=== PATIENT | male | born 1935 | race Caucasian/White ===

== ENCOUNTER 2017-04-08 07:54 | Day surgery (SDC) | payer OTHER ==
[2017-04-07 14:06] VITALS: BMI 35.5
[2017-04-08] MEDS ORDERED: PROPOFOL 20 ML ONE ×3 (10:17)
[2017-04-08 10:21] VITALS: TEMP 97.8
[2017-04-08 11:40] VITALS: BP 120/55; PULSE 59
--- NOTE | 2017-04-09 15:09 | PATH ---
Surgical Pathology Report Patient Name: ANGI ACOSTA [facility]. Rec. #: [id number] /Age/Gender: 1935 (Age: 81) / M Account: [id number] Location: U-ENDOSCOPY Taken: 04/08/2017 Received: 04/08/2017 Reported: 04/09/2017 Physicians: Latrell Westbrook M.D. Specimen(s) Received A: BX DUODENUM B: BX ANTRUM C: POLYP RIGHT COLON D: POLYP CECUM E: POLYP DISTAL TRANSVERSE COLON Clinical History Preoperative diagnosis: Anemia Postoperative diagnosis: Sliding hiatal hernia, gastritis, colon polyps, hemorrhoids, diverticulosis Final Diagnosis A. DUODENUM, SECOND PORTION AND BULB, BIOPSY: DUODENAL MUCOSA WITHOUT SIGNIFICANT PATHOLOGIC FINDINGS. B. STOMACH, ANTRUM, BIOPSY: GASTRIC ANTRAL MUCOSA WITH MILD CHRONIC GASTRITIS. IMMUNOHISTOCHEMICAL STAIN FOR H. PYLORI IS NEGATIVE. C. COLON, RIGHT, POLYPS, POLYPECTOMY: TUBULAR ADENOMA(S). D. CECUM, POLYP, POLYPECTOMY: HYPERPLASTIC POLYP. E. CECUM, POLYP, POLYPECTOMY: HYPERPLASTIC POLYP. Electronically Signed Radha Shay M.D. Gross Description A. Received in formalin, labeled "biopsy duodenum second portion and bulb" are 5 jain, irregular portions of soft tissue ranging from 0.1-0.4 cm. in greatest dimension. The specimens are submitted in toto in one cassette. B. Received in formalin, labeled "biopsy antrum" are 3 jain, irregular portions of soft tissue averaging 0.3 cm. in greatest dimension. The specimens are submitted in toto in one cassette. C. Received in formalin, labeled "polyps right colon" are 5 jain, irregular portions of soft tissue ranging from 0.1-0.2 cm. in greatest dimension. The specimens are submitted in toto in one cassette. D. Received in formalin, labeled "polyp cecum" is a jain, irregular portion of soft tissue measuring 0.6 cm. in greatest dimension. The specimen is submitted in toto in one cassette. E. Received in formalin, labeled "polyp distal transverse colon" are 3 jain, irregular portions of soft tissue ranging from 0.2-0.3 cm. in greatest dimension. The specimens are submitted in toto in one cassette. 04/08/201704/08/2017
== END 2017-04-08 11:40 | disposition home or self-care (01) ==
LOC: JASU-ENDO 07:54
PROVIDERS: ATTEND Internal Medicine Gastroenterology
PROC: 0DBH8ZX Excision of Cecum, Via Natural or Artificial Opening Endoscopic, Diagnostic (ICD-10-PCS; 2017-04-08)
PROC: 0DBL8ZX Excision of Transverse Colon, Via Natural or Artificial Opening Endoscopic, Diagnostic (ICD-10-PCS; 2017-04-08)
PROC: 0DB98ZX Excision of Duodenum, Via Natural or Artificial Opening Endoscopic, Diagnostic (ICD-10-PCS; 2017-04-08)
PROC: 0DB68ZX Excision of Stomach, Via Natural or Artificial Opening Endoscopic, Diagnostic (ICD-10-PCS; 2017-04-08)
PROC: 0DBK8ZX Excision of Ascending Colon, Via Natural or Artificial Opening Endoscopic, Diagnostic (ICD-10-PCS; principal; 2017-04-08 09:45)
DX: Z12.11 Encounter for screening for malignant neoplasm of colon (principal); Z80.0 Family history of malignant neoplasm of digestive organs; D64.9 Anemia, unspecified; D12.2 Benign neoplasm of ascending colon; D12.0 Benign neoplasm of cecum; D12.3 Benign neoplasm of transverse colon; K57.30 Diverticulosis of large intestine without perforation or abscess without bleeding; K64.8 Other hemorrhoids; K29.61 Other gastritis with bleeding; K44.9 Diaphragmatic hernia without obstruction or gangrene

== ENCOUNTER 2019-12-14 07:34 | Emergency (ER) | payer OTHER ==
[2019-12-14 07:46] VITALS: BP 134/60; PULSE 77; TEMP 98.4; BMI 35.4
--- OUTSIDE RECORDS SUMMARY | 2019-12-14 07:48 | XMS ---
:1935 Author Organization [facility] Care Team Providers Name Role Phone Darius Ravi Unavailable Unavailable Re-disclosure Warning The records that you are about to access may contain information from federally- assisted alcohol or drug abuse programs. If such information is present, then the following federally mandated warning applies: This information has been disclosed to you from records protected by federal confidentiality rules (42 CFR part 2). The federal rules prohibit you from making any further disclosure of this information unless further disclosure is expressly permitted by the written consent of the person to whom it pertains or as otherwise permitted by 42 CFR part 2. A general authorization for the release of medical or other information is NOT sufficient for this purpose. The Federal rules restrict any use of the information to criminally investigate or prosecute any alcohol or drug abuse patient.The records that you are about to access may contain highly sensitive health information, the redisclosure of which is protected by Article 27-F of the [facility] Public Health law. If you continue you may haveaccess to information: Regarding HIV / AIDS; Provided by facilities licensed or operated by the [facility] Office of Mental Health; or Provided by the [facility] Office for People With Developmental Disabilities. If such information is present, then the following [facility] mandated warning applies: This information has been disclosed to you from confidential records which are protected by state law. State law prohibits you from making any further disclosure of this information without the specific written consent of the person to whom it pertains, or as otherwise permitted by law. Any unauthorized further disclosure in violation of state law may result in a fine or senior living sentence or both. A general authorization for the release of medical or other information is NOT sufficient authorization for further disclosure. Allergies and Adverse Reactions Type Description Substance Reaction Status Data Source(s ) NO KNOWN DRUG ALLERGIES NO KNOWN DRUG [facility]EXTGEN ([facility] - [facility]) Encounters Encounter Providers Location Date Indications Data Source(s ) Outpatient Attender: 11/15/2019 NEXTGEN ( [facility] 11:13:00 AM [facility]) Outpatient Attender: 11/07/2019 NEXTGEN ( [facility] 12:13:00 PM [facility]) Outpatient Attender: 11/04/2019 NEXTGEN ( [facility] 12:45:00 PM [facility]) Outpatient Attender: 07/11/2019 NEXTGEN ( [facility]er[facility]: 10:00:00 AM [facility]) Medications Medication Brand Start Product Dose Route Administrative Pharmacy [facility] Indications Reaction Description Data Name Date Form Instructions Instructions Source(s) 50 mg-1,000 RP NEXTGEN mg 50 ([facility] mg-1,000 mg [facility]) This may be an active medication. No end date is available. Start date above may not reflect actual date the medication was s tarted. Amlodipine 2.5 MG Oral AMLODIPINE BESYLATE RP NEXTGEN ([facility] Tablet 2.5 mg 2.5 mg [facility]) This may be an active medication. No end date is available. Start date above may not reflect actual date the medication was s tarted. Aspirin 81 MG Chewable ASPIRIN RP [facility] 81 mg M t [facility]) This may be an active medication. No end date is available. Start date above may not reflect actual date the medication was s tarted. 3 ML Insulin Lispro 100 HUMALOG RP [facility]GEN ([facility] UNT/ML Cartridge [Humalog] [facility]) 100 unit/mL 100 unit/mL This may be an active medication. No end date is available. Start date above may not reflect actual date the medication was s tarted. Atenolol 25 MG Oral Tablet ATENOLOL RP [facility] 25 [facility] 25 mg [facility]) This may be an active medication. No end date is available. Start date above may not reflect actual date the medication was s tarted. ezetimibe 10 MG Oral Tablet ZETIA RP NEXTGEN ([facility] - [Zetia] 10 mg 10 mg [facility]) This may be an active medication. No end date is available. Start date above may not reflect actual date the medication was s tarted. clopidogrel 75 MG Oral Tablet PLAVIX RP NEXTGEN ([facility] - [Plavix] 75 mg 75 mg [facility]) This may be an active medication. No end date is available. Start date above may not reflect actual date the medication was s tarted. 5 mg 5 mg RP NEXTGEN ([facility] - [facility]) This may be an active medication. No end date is available. Start date above may not reflect actual date the medication was s tarted. 3 ML insulin detemir LEVEMIR FLEXTOUCH RP NEXTGEN ([facility] 100 UNT/ML Pen Injector [facility]Levemir] 100 unit/mL [facility]) (3 mL) 100 unit/mL (3 mL) This may be an active medication. No end date is available. Start date above may not reflect actual date the medication was s tarted. pantoprazole 20 MG PANTOPRAZOLE SODIUM RP NEXTGEN ([facility] Delayed Release [facility] - [place] [facility] Tablet 20 mg 20 mg [facility]) This may be an active medication. No end date is available. Start date above may not reflect actual date the medication was s tarted. Furosemide 20 MG Oral FUROSEMIDE RP NEXTGEN ([facility] Tablet 20 mg 20 mg - [facility]) This may be an active medication. No end date is available. Start date above may not reflect actual date the medication was s tarted. Losartan Potassium 25 LOSARTAN POTASSIUM RP NEXTGEN ([facility] MG Oral Tablet 25 mg Medical - [place] 25 mg [facility]) This may be an active medication. No end date is available. Start date above may not reflect actual date the medication was s tarted. atorvastatin 10 MG Oral LIPITOR RP NEXTGEN ([facility] Tablet [Lipitor] 10 mg 10 mg - [facility]) This may be an active medication. No end date is available. Start date above may not reflect actual date the medication was s tarted. Insurance Providers Payer name Policy type Policy ID Covered Covered alliance party's Policy P bryanna / Coverage alliance party ID relationship to [place] or[place]ation [place] [employer] [id number] SP [id number] 01 HEALTHCARE PPO 1 MEDICARE [id number] SP [id number] A CIGN [facility] [id number] 1 [id number] [facility] [id number] 1 [id number] Part B Par 1 Providers
[2019-12-14] MEDS ORDERED: DIPHTH,PERTUSS(ACELL),TET 0.5 ML DISP.SYRIN IM ONE ×2 (08:11→10:24)
--- NOTE | 2019-12-14 08:26 | PDOC ---
Documentation entered by Crys Stephenson SCRIBE, acting as scribe for Chata Gamboa MD. Chata Gamboa MD: This documentation has been prepared by the Seema rapp Xhesika, SCRIBE, under my direction and personally reviewed by me in its entirety. I confirm that the documentation accurately reflects all work, treatment, procedures, and medical decision making performed by me. History of Present Illness - General Chief Complaint: Injury Stated Complaint: FALL, Hit head Time Seen by Provider: 12/14/19 07:57 History Source: Patient Exam Limitations: No Limitations - History of Present Illness Initial Comments: 12/14/19 08:09 The patient is a 84 year old male with a significant PMH of Anemia, HTN, DM, SAD s/p 3 stents, colon polyps, BPH who presents to the emergency department for L hand pain and edema. Pt states he tripped and fell Thursday (12/13/19), hitting his head. Pt does not recall exactly how he landed on his hand (whether it was outstretched or hit the dorsum of his hand) but reports he tripped and fell. Pt states over the past 2 days his L hand has progressively worsened, prompting his arrival to the ED. Pt denies and UE numbness or weakness. Pt is unsure when his last tetanus was. Pt denies vision changes, headache and dizziness. The patient denies chest pain, shortness of breath Denies fever, chills, cough, nausea, vomiting, diarrhea and constipation. Allergies: NKDA PCP:Dr. Reis Past History - Medical History Allergies/Adverse Reactions: Allergies Allergy/AdvReac Type Severity Reaction Status Date / Time No Known Allergies Allergy Verified 12/14/19 07:43 Home Medications: Ambulatory Orders Amlodipine Besylate 5 mg PO DAILY 03/08/18 Aspirin 1 tab PO DAILY 03/08/18 Atenolol [Tenormin] 50 mg PO DAILY 03/08/18 Atorvastatin Ca [Lipitor] 80 mg PO HS 03/08/18 Clopidogrel Bisulfate [Clopidogrel] 1 tab PO DAILY 03/08/18 Ezetimibe [Zetia] 10 mg PO DAILY 03/08/18 Furosemide [Lasix] 20 mg PO DAILY 03/08/18 Glipizide 10 mg PO BID 03/08/18 Losartan 50Mg/Hctz 12.5MG [Hyzaar -] 1 tab PO DAILY 03/08/18 Pantoprazole Sodium [Protonix -] 1 tab PO DAILY 03/08/18 Sitagliptin Phos/Metformin HCl [Janumet 50-1,000 mg Tablet] 1 tab PO BID 03/08/18 Anemia: Yes Asthma: No Cancer: No Cardiac Disorders: Yes (CAD 3 STENTS 2010) CVA: No COPD: No CHF: No Dementia: No Diabetes: Yes (IDDM) GI Disorders: Yes (COLON POLYPS) Disorders: Yes (BPH) HTN: Yes Hypercholesterolemia: Yes Liver Disease: No Seizures: No Thyroid Disease: No - Surgical History Abdominal Surgery: No Appendectomy: No Cardiac Surgery: Yes (S/P CARDIAC STENTS) Cholecystectomy: No Lung Surgery: No Neurologic Surgery: No Orthopedic Surgery: Yes (RIGHT KNEE REPLACEMENT) - Immunization History Immunization Up to Date: Yes - Psycho-Social/Smoking History Smoking Status: No Smoking History: Never smoked Have you smoked in the past 12 months: No Number of Cigarettes Smoked Daily: 0 Information on smoking cessation initiated: No - Substance Abuse Hx (Audit-C & DAST Scrn) How often the patient has a drink containing alcohol: Never Score: In Men: 4 or > Positive; In Women: 3 or > Positive: 0 Screen Result (Pos requires Nsg. Audit-10AR): Negative Review of Systems - Review of Systems Able to Perform ROS?: Yes Comments:: 12/14/19 08:12 GENERAL/CONSTITUTIONAL: No fever or chills. No weakness. HEAD, EYES, EARS, NOSE AND THROAT: No change in vision. No ear pain or discharge. No sore throat. CARDIOVASCULAR: No chest pain or shortness of breath. RESPIRATORY: No cough, wheezing, or hemoptysis. GASTROINTESTINAL: No nausea, vomiting, diarrhea or constipation. GENITOURINARY: No dysuria, frequency, or change in urination. MUSCULOSKELETAL: +L hand pain and edema. No neck or back pain. SKIN: No rash NEUROLOGIC: No headache, vertigo, loss of consciousness, or change in strength/sensation. ENDOCRINE: No increased thirst. No abnormal weight change. HEMATOLOGIC/LYMPHATIC: No anemia, easy bleeding, or history of blood clots. ALLERGIC/IMMUNOLOGIC: No hives or skin allergy. *Physical Exam - Vital Signs Last Vital Signs Temp Pulse Resp BP Pulse Ox 98.4 F 77 19 134/60 96 12/14/19 07:41 12/14/19 07:41 12/14/19 07:41 12/14/19 07:41 12/14/19 07:41 - Physical Exam 12/14/19 08:20 GENERAL: Well appearing, in no acute distress HEENT: echymosis below L eye, no facial tenderness, visual acuity grossly intact, conjunctiva not injected, MMM, EOMI, no racoon eyes, no sagastume sign NECK: Normal ROM, supple, no midline or paraspinal tenderness LUNGS: CTAB. Good air entry. No wheezes, No Rhonchi and no crackles HEART: RRR, + s1 s2 ABDOMEN: Soft, nontender, normoactive bowel sounds. No guarding, no rebound. No masses BACK: no midline or paraspinal tenderness. No CVA tenderness. EXTREMITIES: Warm and well perfused. L hand and wrist edematous with bruising to palmar aspect of L hand on radial side, +ttp on dorsum of hand near mcp joint and distal radius with abrasion to L hand, ROM L wrist limited in flexion/extension, unable to make fist with L hand, flexion of digits on L limited 2/2 swelling, abduction/adduction of digits intact, no snuffbox tenderness, +radial pulses, sensation intact to light touch NEUROLOGICAL: Aox3, responds appropriately to questions, Speech fluent, face symmetric. Sensation grossly intact to light touch. Strength intact. No focal deficits. Medical Decision Making - Medical Decision Making 12/14/19 08:24 84 yo M with mechanical fall, low suspicion for ICH however given age will get CT head and c-spine. L hand swollen with ttp concerning for fx vs. sprain. Plan: -tetanus -CT head -CT c-spine -xr L hand/wrist -pain control as needed, patient declined pain medication at this time -reassess This clinical encounter is taking place during a federal and state health care emergency attributable to the novel [place] Virus pandemic. The [employer] of the Department of Health and Human Services has declared, pursuant to the Public Health Service Act 319F-3 (42 U.S.C. 247d-6d), that a covered persons activities related to medical countermeasures against COVID-19 will be immune from liability under Federal and State law. 12/14/19 10:10 Imaging results reviewed. No evidence of fx or acute intracranial injury. Will apply jonathan wrap and recommend elevatioin. Will d/c with return precautions, recommend PMD f/u. Discharge - Discharge Information Problems reviewed: Yes Clinical Impression/Diagnosis: Fall Qualifiers: Encounter type: initial encounter Qualified Code(s): W19.XXXA - Unspecified fall, initial encounter Condition: Stable Disposition: HOME - Admission No - Follow up/Referral Referrals: Mao Reis MD [Primary Care Provider] - - Patient Discharge Instructions Patient Printed Discharge Instructions: How to Prevent Falls Additional Instructions: Your xray did not show any fractures. You should keep the hand elevated to reduce swelling. return to the ED for new or worsening symptoms. You should follow up with your PMD. - Post Discharge Activity
== END 2019-12-14 10:25 | disposition home or self-care (01) ==
LOC: JER 07:34
PROC: 3E0234Z Introduction of Serum, Toxoid and Vaccine into Muscle, Percutaneous Approach (ICD-10-PCS; principal; 2019-12-14)
DX: M79.642 Pain in left hand (principal)
CPT/HCPCS: 70450-TC; 72125-TC; 73110-TC-LT-FY; 73130-TC-LT-FY; 90715; 99285-25

== ENCOUNTER 2020-05-07 09:34 | Inpatient (IN) | payer OTHER ==
[2020-05-07 09:54] VITALS: BMI 29.8
[2020-05-07] MEDS ORDERED: ACETAMINOPHEN 1000 MG/100 ML VIAL (NON FORMULARY) IVPB ONE (10:46)
[2020-05-07] MEDS ORDERED: ACETAMINOPHEN INJECTION 100 ML IVPB ONE (11:25)
[2020-05-07 12:22] LABS: BASO % 0.3 % (0-2.0); EOS % 0.1 % (0-4.5); HEMATOCRIT 39.3 % (35.4-49); HEMOGLOBIN 13.2 GM/dL (11.7-16.9); LYMPH % 6.4 % (8-40); MCH 32.9 pg (25.7-33.7); MCHC 33.6 g/dl (32.0-35.9); MEAN CELL VOLUME 97.9 fl (80-96); MEAN PLT VOLUME 8.8 fl (7.5-11.1); NEUT % 86.2 % (42.8-82.8); PLATELET COUNT 260 K/MM3 (134-434); RBC 4.02 M/mm3 (4.00-5.60); RDW 14.2 % (11.9-15.9); WHITE BLOOD COUNT 16.6 K/mm3 (4.0-10.0)
[2020-05-07 12:28] LABS: INR 1.13 (0.83-1.09); PROTHROMBIN TIME (PATIENT) 13.9 SEC (9.7-13.0)
[2020-05-07 12:39] LABS: ALBUMIN 3.2 g/dl (3.4-5.0); BLOOD UREA NITROGEN 51.6 mg/dL (7-18); CALCIUM 8.8 mg/dL (8.5-10.1); MAGNESIUM 1.8 mg/dL (1.8-2.4)
[2020-05-07 12:42] LABS: CREATININE 2.2 mg/dL (0.55-1.3)
[2020-05-07 12:44] LABS: BILIRUBIN,TOTAL 1.2 mg/dL (0.2-1); TOT PROT 7.6 g/dl (6.4-8.2)
[2020-05-07 12:56] LABS: POTASSIUM 6.7 mmol/L (3.5-5.1)
[2020-05-07] MEDS ORDERED: SODIUM CHLORIDE 1,000 ML IV STA (13:12)
[2020-05-07] MEDS ORDERED: SODIUM CHLORIDE 1,000 ML IV SCH (14:00)
[2020-05-07 14:13] LABS: POTASSIUM 4.8 mmol/L (3.5-5.1)
[2020-05-07 14:15] LABS: BLOOD UREA NITROGEN 53.1 mg/dL (7-18); CALCIUM 8.6 mg/dL (8.5-10.1)
[2020-05-07 14:19] LABS: CREATININE 2.1 mg/dL (0.55-1.3)
[2020-05-07] MEDS: LACTATED RINGERS SOLUTION 1,000 ML/1,000 ML INFUS.BAG IV SCH (15:28)
[2020-05-07] MEDS ORDERED: ASPIRIN 81 MG CHEWABLE TABLETS ONE (15:29)
[2020-05-07] MEDS: ASPIRIN 81 MG CHEWABLE TABLETS PO SCH (15:30)
[2020-05-07 17:25] LABS: EPI CELLS 32 /uL (0-25.1); HYALINE CASTS 24 /uL (0-3.1); URINE APPEARANCE CLOUDY; URINE BACTERIA 54 /uL (0-1359); URINE BILIRUBIN NEGATIVE (NEGATIVE); URINE COLOR DK YELLOW; URINE GLUCOSE (UA) NEGATIVE (NEGATIVE); URINE KETONE 1+ (NEGATIVE); URINE LEUK ESTERASE TRACE (NEGATIVE); URINE NITRITE NEGATIVE (NEGATIVE); URINE PROTEIN 3+ (NEGATIVE); URINE WBC 82 /uL (0-25.8)
[2020-05-07 18:21] LABS: URINE RBC 137.8 /uL (0-23.9)
[2020-05-08] MEDS: CLOPIDOGREL BISULFATE 75 MG TABLET (FP) PO SCH (11:03)
[2020-05-08] MEDS: ASPIRIN 81 MG CHEWABLE TABLETS PO SCH (11:03)
[2020-05-08 12:42] LABS: BASO % 0.5 % (0-2.0); HEMATOCRIT 36.2 % (35.4-49); HEMOGLOBIN 12.1 GM/dL (11.7-16.9); LYMPH % 14.3 % (8-40); MCH 32.9 pg (25.7-33.7); MCHC 33.4 g/dl (32.0-35.9); MEAN CELL VOLUME 98.7 fl (80-96); MEAN PLT VOLUME 8.3 fl (7.5-11.1); MONO % 8.3 % (3.8-10.2); NEUT % 74.9 % (42.8-82.8); PLATELET COUNT 212 K/MM3 (134-434); RBC 3.67 M/mm3 (4.00-5.60); RDW 14.4 % (11.9-15.9); WHITE BLOOD COUNT 9.7 K/mm3 (4.0-10.0)
[2020-05-08 13:07] LABS: ALBUMIN 2.8 g/dl (3.4-5.0); CALCIUM 8.4 mg/dL (8.5-10.1)
[2020-05-08 13:08] LABS: MAGNESIUM 1.9 mg/dL (1.8-2.4)
[2020-05-08 13:11] LABS: CREATININE 1.5 mg/dL (0.55-1.3)
[2020-05-08 13:12] LABS: TOT PROT 6.4 g/dl (6.4-8.2)
[2020-05-09] MEDS: LACTATED RINGERS SOLUTION 1,000 ML/1,000 ML INFUS.BAG IV SCH (04:59)
[2020-05-09 08:27] LABS: HEMATOCRIT 33.2 % (35.4-49); HEMOGLOBIN 11.3 GM/dL (11.7-16.9); MCH 33.2 pg (25.7-33.7); MEAN CELL VOLUME 97.6 fl (80-96); MEAN PLT VOLUME 8.1 fl (7.5-11.1); PLATELET COUNT 196 K/MM3 (134-434); RDW 14.2 % (11.9-15.9); WHITE BLOOD COUNT 11.2 K/mm3 (4.0-10.0)
[2020-05-09 08:28] LABS: INR 1.14 (0.83-1.09)
[2020-05-09 08:31] LABS: ACTIVATED PTT 24.8 SECONDS (25.2-36.5)
[2020-05-09 08:43] LABS: POTASSIUM 4.5 mmol/L (3.5-5.1)
[2020-05-09 08:44] LABS: BLOOD UREA NITROGEN 35.9 mg/dL (7-18); CALCIUM 8.4 mg/dL (8.5-10.1); MAGNESIUM 1.8 mg/dL (1.8-2.4)
[2020-05-09 08:47] LABS: PHOSPHOROUS 2.7 mg/dL (2.5-4.9)
[2020-05-09 08:48] LABS: CREATININE 1.2 mg/dL (0.55-1.3)
[2020-05-09] MEDS ORDERED: SODIUM CHLORIDE 0.45% 1,000 ML IV SCH (10:00)
[2020-05-09] MEDS: ATENOLOL 50 MG TABLET (FP) PO SCH (10:41)
[2020-05-09] MEDS: LIDOCAINE 5% TOPICAL PATCH TP SCH (10:42)
[2020-05-09] MEDS: ASPIRIN 81 MG CHEWABLE TABLETS PO SCH (10:42)
[2020-05-09] MEDS: amLODIPine BESYLATE 5 MG TABLET (FP) PO SCH (10:42)
[2020-05-09] MEDS: CLOPIDOGREL BISULFATE 75 MG TABLET (FP) PO SCH (10:42)
[2020-05-09] MEDS: SODIUM CHLORIDE 0.45% 1,000 ML IV SCH (14:49)
[2020-05-09] MEDS: LIDOCAINE PATCH REMOVAL MC SCH (23:12)
[2020-05-09] MEDS: ATORVASTATIN CA 80 MG TABLET (FP) PO SCH (23:12)
[2020-05-10] MEDS: amLODIPine BESYLATE 5 MG TABLET (FP) PO SCH (09:34)
[2020-05-10] MEDS: ATENOLOL 50 MG TABLET (FP) PO SCH (09:34)
[2020-05-10] MEDS: CLOPIDOGREL BISULFATE 75 MG TABLET (FP) PO SCH (09:34)
[2020-05-10] MEDS: ASPIRIN 81 MG CHEWABLE TABLETS PO SCH (09:34)
[2020-05-10] MEDS: LIDOCAINE 5% TOPICAL PATCH TP SCH (09:34)
[2020-05-10 09:58] LABS: HEMATOCRIT 34.1 % (35.4-49); HEMOGLOBIN 11.5 GM/dL (11.7-16.9); MCH 33.3 pg (25.7-33.7); MCHC 33.9 g/dl (32.0-35.9); MEAN CELL VOLUME 98.2 fl (80-96); MEAN PLT VOLUME 7.9 fl (7.5-11.1); PLATELET COUNT 192 K/MM3 (134-434); RBC 3.47 M/mm3 (4.00-5.60); RDW 14.2 % (11.9-15.9); WHITE BLOOD COUNT 8.2 K/mm3 (4.0-10.0)
[2020-05-10 10:11] LABS: POTASSIUM 3.9 mmol/L (3.5-5.1)
[2020-05-10 10:12] LABS: CALCIUM 8.1 mg/dL (8.5-10.1)
[2020-05-10 10:13] LABS: BLOOD UREA NITROGEN 26.4 mg/dL (7-18)
[2020-05-10 10:16] LABS: CREATININE 1.2 mg/dL (0.55-1.3)
[2020-05-10] MEDS: SODIUM CHLORIDE 0.45% 1,000 ML IV SCH (13:20)
[2020-05-10] MEDS: INSULIN SLIDING SCALE (NOVOLOG) 1 VIAL SQ SCH ×2 (17:37→22:00)
[2020-05-10] MEDS: ATORVASTATIN CA 80 MG TABLET (FP) PO SCH (21:46)
[2020-05-10] MEDS: LIDOCAINE PATCH REMOVAL MC SCH (21:47)
[2020-05-11] MEDS: LIDOCAINE 5% TOPICAL PATCH TP SCH (10:09)
[2020-05-11] MEDS: ATENOLOL 50 MG TABLET (FP) PO SCH (10:09)
[2020-05-11] MEDS: APIXABAN 5 MG TABLET PO SCH ×2 (10:10→21:39)
[2020-05-11] MEDS: amLODIPine BESYLATE 5 MG TABLET (FP) PO SCH (10:10)
[2020-05-11] MEDS: INSULIN SLIDING SCALE (NOVOLOG) 1 VIAL SQ SCH ×3 (12:53→21:38)
[2020-05-11] MEDS: SODIUM CHLORIDE 0.45% 1,000 ML IV SCH (21:39)
[2020-05-11] MEDS: LIDOCAINE PATCH REMOVAL MC SCH (21:40)
[2020-05-11] MEDS: ATORVASTATIN CA 80 MG TABLET (FP) PO SCH (21:40)
[2020-05-12] MEDS: INSULIN SLIDING SCALE (NOVOLOG) 1 VIAL SQ SCH ×4 (06:32→21:57)
[2020-05-12] MEDS: amLODIPine BESYLATE 5 MG TABLET (FP) PO SCH (10:05)
[2020-05-12] MEDS: APIXABAN 5 MG TABLET PO SCH ×2 (10:05→21:35)
[2020-05-12 10:24] LABS: BASO % 0.6 % (0-2.0); EOS % 3.5 % (0-4.5); HEMATOCRIT 32.9 % (35.4-49); HEMOGLOBIN 11.1 GM/dL (11.7-16.9); LYMPH % 16.8 % (8-40); MCH 33.1 pg (25.7-33.7); MCHC 33.7 g/dl (32.0-35.9); MEAN CELL VOLUME 98.2 fl (80-96); MEAN PLT VOLUME 8.6 fl (7.5-11.1); NEUT % 68.1 % (42.8-82.8); PLATELET COUNT 212 K/MM3 (134-434); RBC 3.35 M/mm3 (4.00-5.60); RDW 14.2 % (11.9-15.9); WHITE BLOOD COUNT 9.4 K/mm3 (4.0-10.0)
[2020-05-12] MEDS: ATENOLOL 50 MG TABLET (FP) PO SCH (10:30)
[2020-05-12] MEDS: LIDOCAINE 5% TOPICAL PATCH TP SCH (10:30)
[2020-05-12 10:54] LABS: POTASSIUM 4.3 mmol/L (3.5-5.1)
[2020-05-12 10:56] LABS: ALBUMIN 2.3 g/dl (3.4-5.0); BLOOD UREA NITROGEN 25.4 mg/dL (7-18); CALCIUM 8.6 mg/dL (8.5-10.1); MAGNESIUM 1.5 mg/dL (1.8-2.4)
[2020-05-12 10:59] LABS: CREATININE 1.1 mg/dL (0.55-1.3)
[2020-05-12 11:00] LABS: PHOSPHOROUS 2.6 mg/dL (2.5-4.9)
[2020-05-12 11:01] LABS: BILIRUBIN,TOTAL 0.9 mg/dL (0.2-1); TOT PROT 5.8 g/dl (6.4-8.2)
[2020-05-12] MEDS ORDERED: MAGNESIUM SULF 50% (8.12 MEQ/2 ML-1 GM VIAL) IVPB ONE (13:15)
[2020-05-12] MEDS: SODIUM CHLORIDE 0.45% 1,000 ML IV SCH (16:22)
[2020-05-12 20:56] LABS: EPI CELLS 17 /uL (0-25.1); HYALINE CASTS 3 /uL (0-3.1); URINE APPEARANCE CLEAR; URINE BACTERIA 105 /uL (0-1359); URINE BILIRUBIN NEGATIVE (NEGATIVE); URINE COLOR DK YELLOW; URINE GLUCOSE (UA) 1+ (NEGATIVE); URINE KETONE NEGATIVE (NEGATIVE); URINE LEUK ESTERASE 1+ (NEGATIVE); URINE NITRITE NEGATIVE (NEGATIVE); URINE PROTEIN 2+ (NEGATIVE); URINE RBC 11 /uL (0-23.9); URINE WBC 52 /uL (0-25.8)
[2020-05-12] MEDS: ATORVASTATIN CA 80 MG TABLET (FP) PO SCH (21:35)
[2020-05-12] MEDS: LIDOCAINE PATCH REMOVAL MC SCH (21:35)
[2020-05-13 08:40] LABS: BASO % 0.6 % (0-2.0); EOS % 5.2 % (0-4.5); HEMATOCRIT 32.7 % (35.4-49); HEMOGLOBIN 11.4 GM/dL (11.7-16.9); LYMPH % 19.3 % (8-40); MCH 33.6 pg (25.7-33.7); MCHC 34.8 g/dl (32.0-35.9); MEAN CELL VOLUME 96.5 fl (80-96); MEAN PLT VOLUME 7.8 fl (7.5-11.1); MONO % 11.4 % (3.8-10.2); NEUT % 63.5 % (42.8-82.8); PLATELET COUNT 235 K/MM3 (134-434); RBC 3.38 M/mm3 (4.00-5.60); RDW 14.3 % (11.9-15.9); WHITE BLOOD COUNT 7.7 K/mm3 (4.0-10.0)
[2020-05-13 09:11] LABS: CALCIUM 8.5 mg/dL (8.5-10.1)
[2020-05-13 09:12] LABS: ALBUMIN 2.3 g/dl (3.4-5.0); CREATININE 1.1 mg/dL (0.55-1.3); MAGNESIUM 1.8 mg/dL (1.8-2.4); PHOSPHOROUS 2.7 mg/dL (2.5-4.9)
[2020-05-13 09:14] LABS: BILIRUBIN,TOTAL 0.8 mg/dL (0.2-1); TOT PROT 5.9 g/dl (6.4-8.2)
[2020-05-13] MEDS: LIDOCAINE 5% TOPICAL PATCH TP SCH (11:20)
[2020-05-13] MEDS: amLODIPine BESYLATE 5 MG TABLET (FP) PO SCH (11:20)
[2020-05-13] MEDS: ATENOLOL 50 MG TABLET (FP) PO SCH (11:20)
[2020-05-13] MEDS: INSULIN SLIDING SCALE (NOVOLOG) 1 VIAL SQ SCH ×3 (11:20→22:49)
[2020-05-13] MEDS: APIXABAN 5 MG TABLET PO SCH ×2 (11:20→22:48)
[2020-05-13] MEDS: ATORVASTATIN CA 80 MG TABLET (FP) PO SCH (22:48)
[2020-05-13] MEDS: LIDOCAINE PATCH REMOVAL MC SCH (22:49)
[2020-05-14] MEDS: INSULIN SLIDING SCALE (NOVOLOG) 1 VIAL SQ SCH ×4 (07:00→15:54)
[2020-05-14 07:47] LABS: BASO % 0.6 % (0-2.0); HEMATOCRIT 32.6 % (35.4-49); HEMOGLOBIN 11.3 GM/dL (11.7-16.9); LYMPH % 20.3 % (8-40); MCH 33.3 pg (25.7-33.7); MCHC 34.6 g/dl (32.0-35.9); MEAN CELL VOLUME 96.1 fl (80-96); MEAN PLT VOLUME 7.9 fl (7.5-11.1); MONO % 11.4 % (3.8-10.2); NEUT % 61.7 % (42.8-82.8); PLATELET COUNT 253 K/MM3 (134-434); RBC 3.39 M/mm3 (4.00-5.60)
[2020-05-14 08:03] LABS: POTASSIUM 4.6 mmol/L (3.5-5.1)
[2020-05-14 08:05] LABS: ALBUMIN 2.3 g/dl (3.4-5.0); CALCIUM 8.6 mg/dL (8.5-10.1); MAGNESIUM 1.7 mg/dL (1.8-2.4)
[2020-05-14 08:09] LABS: PHOSPHOROUS 3.4 mg/dL (2.5-4.9)
[2020-05-14 08:10] VITALS: TEMP 98.5
[2020-05-14 08:10] LABS: TOT PROT 5.8 g/dl (6.4-8.2)
[2020-05-14] MEDS: APIXABAN 5 MG TABLET PO SCH (09:32)
[2020-05-14] MEDS: LIDOCAINE 5% TOPICAL PATCH TP SCH (09:32)
[2020-05-14] MEDS: ATENOLOL 50 MG TABLET (FP) PO SCH (09:32)
[2020-05-14] MEDS: amLODIPine BESYLATE 5 MG TABLET (FP) PO SCH (09:32)
[2020-05-14] MEDS ORDERED: MAGNESIUM OXIDE 400 MG TABLET (FP) PO ONE (13:54)
[2020-05-14 16:32] VITALS: BP 124/79; PULSE 67
== END 2020-05-14 16:40 | DRG 683 ==
LOC: JER 09:34 → JERBED 13:46 → J6WEST-2 05-08 02:24
PROVIDERS: ADMIT Internal Medicine; ATTEND Internal Medicine
DX: N17.9 Acute kidney failure, unspecified (principal); M62.82 Rhabdomyolysis; E87.0 Hyperosmolality and hypernatremia; I10 Essential (primary) hypertension; E78.5 Hyperlipidemia, unspecified; I25.10 Atherosclerotic heart disease of native coronary artery without angina pectoris; N40.0 Benign prostatic hyperplasia without lower urinary tract symptoms; E87.5 Hyperkalemia; R13.10 Dysphagia, unspecified; D72.829 Elevated white blood cell count, unspecified; E86.1 Hypovolemia; E04.1 Nontoxic single thyroid nodule; R29.6 Repeated falls; I48.91 Unspecified atrial fibrillation; W17.89XA Other fall from one level to another, initial encounter; Y92.098 Other place in other non-institutional residence as the place of occurrence of the external cause; Z95.5 Presence of coronary angioplasty implant and graft; Z96.659 Presence of unspecified artificial knee joint
CPT/HCPCS: 36415; 70450-TC; 71045-TC-FY; 72125-TC; 73030-TC-RT-FY; 73060-TC-RT-FY; 73070-TC-RT-FY; 73200-TC-RT; 74230-TC-FY; 80048; 80053; 81003; 82550; 82553; 82962; 83735; 84100; 84484; 85025; 85027; 85610; 85730; 87040; 87086; 92611-GN; 93005; 93010; 97116-GP; 97162-GP; 99285-25; C9803; U0003

== ENCOUNTER 2020-07-04 13:56 | Inpatient (IN) | payer OTHER ==
[2020-07-04] MEDS ORDERED: AMINO ACIDS 4.25%/D5W 1,000 ML IV SCH (15:30)
[2020-07-04 17:53] LABS: BASO % 0.4 % (0-2.0); EOS % 2.4 % (0-4.5); HEMATOCRIT 27.6 % (35.4-49); HEMOGLOBIN 9.4 GM/dL (11.7-16.9); LYMPH % 22.5 % (8-40); MCH 32.8 pg (25.7-33.7); MCHC 34.2 g/dl (32.0-35.9); MEAN CELL VOLUME 96.1 fl (80-96); MEAN PLT VOLUME 8.1 fl (7.5-11.1); NEUT % 62.7 % (42.8-82.8); PLATELET COUNT 251 K/MM3 (134-434); RBC 2.87 M/mm3 (4.00-5.60); RDW 16.7 % (11.9-15.9); WHITE BLOOD COUNT 7.3 K/mm3 (4.0-10.0)
[2020-07-04 17:59] LABS: INR 2.02 (0.83-1.09)
[2020-07-04 18:09] LABS: ALBUMIN 2.9 g/dl (3.4-5.0); CALCIUM 9.3 mg/dL (8.5-10.1)
[2020-07-04 18:10] LABS: BLOOD UREA NITROGEN 25.6 mg/dL (7-18)
[2020-07-04 18:13] LABS: CREATININE 1.4 mg/dL (0.55-1.3)
[2020-07-04 18:14] LABS: BILIRUBIN,TOTAL 0.6 mg/dL (0.2-1)
[2020-07-04] MEDS ORDERED: PANTOPRAZOLE SODIUM 40 MG VIAL IVPUSH ONE (23:36)
[2020-07-05] MEDS: AMINO ACIDS 4.25%/D5W 1,000 ML IV SCH (13:33)
[2020-07-06] MEDS: AMINO ACIDS 4.25%/D5W 1,000 ML IV SCH ×2 (06:47→21:26)
[2020-07-06 08:11] LABS: INR 1.52 (0.83-1.09); PROTHROMBIN TIME (PATIENT) 18.2 SEC (9.7-13.0)
[2020-07-06 08:12] LABS: BASO % 0.6 % (0-2.0); EOS % 3.2 % (0-4.5); HEMATOCRIT 28.1 % (35.4-49); HEMOGLOBIN 9.6 GM/dL (11.7-16.9); MCH 32.6 pg (25.7-33.7); MCHC 34.2 g/dl (32.0-35.9); MEAN CELL VOLUME 95.3 fl (80-96); MEAN PLT VOLUME 7.2 fl (7.5-11.1); MONO % 12.4 % (3.8-10.2); NEUT % 62.8 % (42.8-82.8); PLATELET COUNT 258 K/MM3 (134-434); RBC 2.95 M/mm3 (4.00-5.60); RDW 16.2 % (11.9-15.9); WHITE BLOOD COUNT 6.8 K/mm3 (4.0-10.0)
[2020-07-06 08:29] LABS: BLOOD UREA NITROGEN 22.3 mg/dL (7-18); CALCIUM 8.9 mg/dL (8.5-10.1)
[2020-07-06 08:30] LABS: ALBUMIN 2.6 g/dl (3.4-5.0)
[2020-07-06 08:33] LABS: CREATININE 1.1 mg/dL (0.55-1.3)
[2020-07-06 08:34] LABS: BILIRUBIN,TOTAL 0.9 mg/dL (0.2-1); TOT PROT 6.5 g/dl (6.4-8.2)
[2020-07-06 11:08] LABS: SARS-CoV-2 NAA Not Detected (Not Detected)
[2020-07-06] MEDS ORDERED: PHYTONADIONE 10 MG/1 ML AMP IM ONE (12:35)
[2020-07-06 14:57] VITALS: BMI 27.1
[2020-07-06] MEDS ORDERED: PHYTONADIONE 10 MG/1 ML AMP IVPB ONE (19:30)
[2020-07-06] MEDS ORDERED: FAT EMULSIONS 20% 250 ML PREMIX INFUS.BAG IV SCH (22:00)
[2020-07-06] MEDS: ENOXAPARIN NA (PORCINE) 80 MG/0.8 ML DISP.SYRIN SQ SCH (22:01)
[2020-07-06] MEDS: FAT EMULSION/OLIVE/SOY/PHOSPHO 250 ML IV SCH (23:35)
[2020-07-07] MEDS: AMINO ACIDS 4.25%/D5W 1,000 ML IV SCH ×3 (01:49→17:17)
[2020-07-07] MEDS: ENOXAPARIN NA (PORCINE) 80 MG/0.8 ML DISP.SYRIN SQ SCH ×2 (11:15→21:43)
[2020-07-07] MEDS: FAT EMULSION/OLIVE/SOY/PHOSPHO 250 ML IV SCH (21:42)
[2020-07-08 08:32] LABS: BASO % 0.7 % (0-2.0); EOS % 4.4 % (0-4.5); HEMATOCRIT 28.8 % (35.4-49); HEMOGLOBIN 10.1 GM/dL (11.7-16.9); LYMPH % 20.5 % (8-40); MCH 33.6 pg (25.7-33.7); MCHC 35.1 g/dl (32.0-35.9); MEAN CELL VOLUME 95.7 fl (80-96); MEAN PLT VOLUME 7.7 fl (7.5-11.1); MONO % 11.7 % (3.8-10.2); NEUT % 62.7 % (42.8-82.8); PLATELET COUNT 284 K/MM3 (134-434); RBC 3.01 M/mm3 (4.00-5.60); RDW 16.2 % (11.9-15.9); WHITE BLOOD COUNT 5.8 K/mm3 (4.0-10.0)
[2020-07-08 08:39] LABS: INR 1.38 (0.83-1.09); PROTHROMBIN TIME (PATIENT) 16.5 SEC (9.7-13.0)
[2020-07-08 09:01] LABS: CALCIUM 9.3 mg/dL (8.5-10.1)
[2020-07-08 09:02] LABS: ALBUMIN 2.6 g/dl (3.4-5.0); BLOOD UREA NITROGEN 27.6 mg/dL (7-18)
[2020-07-08 09:06] LABS: BILIRUBIN,TOTAL 0.6 mg/dL (0.2-1); TOT PROT 6.8 g/dl (6.4-8.2)
[2020-07-08] MEDS: ENOXAPARIN NA (PORCINE) 80 MG/0.8 ML DISP.SYRIN SQ SCH (09:20)
[2020-07-08] MEDS: AMINO ACIDS 4.25%/D5W 1,000 ML IV SCH ×2 (11:59→21:03)
[2020-07-08] MEDS ORDERED: PHYTONADIONE 10 MG/1 ML AMP IVPB ONE (17:18)
[2020-07-08] MEDS: FAT EMULSION/OLIVE/SOY/PHOSPHO 250 ML IV SCH (21:01)
[2020-07-09] MEDS: AMINO ACIDS 4.25%/D5W 1,000 ML IV SCH ×2 (07:16→14:40)
[2020-07-09] MEDS ORDERED: PANTOPRAZOLE SOD 40 MG SUSPENSION PACKET NR SCH (13:15)
[2020-07-09] MEDS ORDERED: PT OWN MED DRAWER 7, Y5N ONE ×3 (17:05→20:34)
[2020-07-09] MEDS: FAMOTIDINE 40 MG/5 ML ORAL SUSPENSION NGT SCH ×2 (17:42→21:19)
[2020-07-09] MEDS ORDERED: FAT EMULSION/OLIVE/SOY/PHOSPHO 250 ML IV SCH ×2 (22:00)
[2020-07-10] MEDS ORDERED: PT OWN MED DRAWER 7, Y5N ONE ×2 (09:36→20:08)
[2020-07-10] MEDS: FAMOTIDINE 40 MG/5 ML ORAL SUSPENSION NGT SCH ×2 (09:38→21:15)
[2020-07-10] MEDS: BACITRACIN 15 GM TUBE TOPICAL OINTMENT TP SCH (09:38)
[2020-07-10] MEDS: ATORVASTATIN CA 80 MG TABLET (FP) GT SCH (21:15)
[2020-07-10] MEDS: APIXABAN 5 MG TABLET GT SCH (21:15)
[2020-07-11] MEDS ORDERED: PT OWN MED DRAWER 7, Y5N ONE ×2 (10:16→20:05)
[2020-07-11] MEDS: APIXABAN 5 MG TABLET GT SCH ×2 (10:21→22:08)
[2020-07-11] MEDS: FAMOTIDINE 40 MG/5 ML ORAL SUSPENSION NGT SCH ×2 (10:21→22:08)
[2020-07-11] MEDS: LOSARTAN POTASSIUM 25 MG TABLET GT SCH (10:21)
[2020-07-11] MEDS: amLODIPine BESYLATE 5 MG TABLET (FP) GT SCH (10:21)
[2020-07-11] MEDS: BACITRACIN 15 GM TUBE TOPICAL OINTMENT TP SCH (10:22)
[2020-07-11] MEDS: ATORVASTATIN CA 80 MG TABLET (FP) GT SCH (22:07)
[2020-07-12] MEDS ORDERED: PT OWN MED DRAWER 7, Y5N ONE (09:56)
[2020-07-12] MEDS: APIXABAN 5 MG TABLET GT SCH (10:05)
[2020-07-12] MEDS: LOSARTAN POTASSIUM 25 MG TABLET GT SCH (10:05)
[2020-07-12] MEDS: amLODIPine BESYLATE 5 MG TABLET (FP) GT SCH (10:05)
[2020-07-12] MEDS: BACITRACIN 15 GM TUBE TOPICAL OINTMENT TP SCH (10:05)
[2020-07-12] MEDS: FAMOTIDINE 40 MG/5 ML ORAL SUSPENSION NGT SCH (10:05)
[2020-07-12 15:23] VITALS: BP 103/50; PULSE 81; TEMP 97.9
== END 2020-07-12 18:45 | DRG 393 ==
LOC: JER 13:56 → JERBED 15:20 → J8W 23:20
PROVIDERS: ADMIT Internal Medicine; ATTEND Internal Medicine
PROC: 0CJS8ZZ Inspection of Larynx, Via Natural or Artificial Opening Endoscopic (ICD-10-PCS; 2020-07-06)
PROC: 0DH68UZ Insertion of Feeding Device into Stomach, Via Natural or Artificial Opening Endoscopic (ICD-10-PCS; principal; 2020-07-09 11:00)
DX: K91.89 Other postprocedural complications and disorders of digestive system (principal); J69.0 Pneumonitis due to inhalation of food and vomit; R13.10 Dysphagia, unspecified; Y83.9 Surgical procedure, unspecified as the cause of abnormal reaction of the patient, or of later complication, without mention of misadventure at the time of the procedure; I25.10 Atherosclerotic heart disease of native coronary artery without angina pectoris; I10 Essential (primary) hypertension; E66.9 Obesity, unspecified; Z68.27 Body mass index [BMI] 27.0-27.9, adult; I48.91 Unspecified atrial fibrillation; R49.0 Dysphonia; E78.5 Hyperlipidemia, unspecified; Z95.5 Presence of coronary angioplasty implant and graft; N40.0 Benign prostatic hyperplasia without lower urinary tract symptoms
CPT/HCPCS: 36415; 70490-TC; 71250-TC; 74230-TC-FY; 80053; 82962; 85025; 85610; 86850; 86900; 86901; 92611-GN; 93005; 93010; 99285-25; C9803; U0003; U0005